=== PATIENT | male | born 1995 | race Caucasian/White ===

== ENCOUNTER 2018-07-22 05:47 | Day surgery (SDC) | payer OTHER ==
[2018-07-22] MEDS ORDERED: LACTATED RINGERS 1,000 ML IV ONE ×2 (06:19→09:32)
[2018-07-22] MEDS ORDERED: ceFAZolin 2 GM/50 ML 2 GM/50 ML BAG IV ONE (06:35)
--- NOTE | 2018-07-22 07:11 | ANESTHESIA ---
Pre-Anesthesia VS, & Labs - Diagnosis right wrist dorsal ganglion cyst - Procedure excision of right wrist dorsal ganglion cyst Vital Signs: Temp Pulse Resp BP Pulse Ox 36.4 C L 76 16 145/91 H 100 07/22/18 06:34 07/22/18 06:34 07/22/18 06:34 07/22/18 06:34 07/22/18 06:34 Height 6 ft Weight (kg) 127.01 kg - NPO >8 hours Home Medications and Allergies Home Medications: Ambulatory Orders Cholecalciferol (Vitamin D3) [Vitamin D3] 1,000 unit PO 07/20/18 Cholecalciferol (Vitamin D3) [Vitamin D3] 1,000 unit PO 07/20/18 Allergies/Adverse Reactions: Allergies Allergy/AdvReac Type Severity Reaction Status Date / Time No Known Drug Allergies Allergy Verified 07/20/18 13:52 Anes History & Medical History - Anesthetic History Family history of Anesthesia Complications: Denies Family history of Malignant Hyperthermia: Denies - Medical History Cardiovascular: reports: None Pulmonary: reports: Sleep apnea (reports snoring and previous bed partner reported he "stops breathing at night") Gastrointestinal: reports: None Urinary: reports: None Neuro: reports: None Musculoskeletal: reports: None Endocrine/Autoimmune: reports: None Blood Disorders: reports: None Skin: reports: None Smoking Status: Current some day smoker (Vapes) Psychosocial: reports: No issues indicated Exam General: Alert, Oriented x3, Cooperative, No acute distress Dental: WNL Mouth Openin Fingerbreadth Neck Mobility: Normal Mallampati classification: II Thyromental Distance: 4-6 cm Respiratory: Lungs clear, Normal breath sounds, No respiratory distress, No accessory muscle use Cardiovascular: Regular rate, Normal S1, Normal S2, No murmurs Mental/Cognitive Status: Alert/Oriented X3, Normal for patient Plan Anesthesia Type: General Consent for Procedure(s) Verified and Reviewed: Yes Code Status: Attempt Resuscitation ASA classification: 2-Mild systemic disease Is this case an emergency?: No
[2018-07-22] MEDS ORDERED: BUPIVACAINE 0.25% PF 30 ML VIAL ONE (07:12)
[2018-07-22] MEDS ORDERED: PROPOFOL 200 MG/20 ML VIAL IVP ONE (08:17)
[2018-07-22] MEDS ORDERED: fentaNYL 100 MCG/2 ML VIAL IVP ONE (08:17)
[2018-07-22] MEDS ORDERED: DEXAMETHASONE 4 MG/ML VIAL IVP ONE (08:17)
[2018-07-22] MEDS ORDERED: KETOROLAC 30 MG/ML VIAL IVP ONE (08:17)
[2018-07-22] MEDS ORDERED: ONDANSETRON 4 MG/2 ML VIAL IVP ONE (08:17)
[2018-07-22] MEDS ORDERED: LIDOCAINE-MPF 2% 5 ML VIAL IM ONE (08:17)
[2018-07-22] MEDS ORDERED: MIDAZOLAM 2 MG/2 ML VIAL IVP ONE (08:17)
[2018-07-22] MEDS ORDERED: BUPIVACAINE 0.25% PF 30 ML VIAL SUBQ ONE ×2 (08:19→08:48)
[2018-07-22] MEDS ORDERED: oxyCODONE 5 MG TABLET PO PRN (09:05)
[2018-07-22] MEDS ORDERED: ONDANSETRON 4 MG/2 ML VIAL IVP PRN (09:05)
--- NOTE | 2018-07-22 09:14 | OPERATIVE REPORT ---
Operative Report - General Procedure Date: 07/22/18 Planned Procedure: Right dorsal wrist mass excision Pre-Op Diagnosis: Right dorsal wrist mass Procedure Performed: Right dorsal wrist mass excision Post Op Diagnosis: Right dorsal wrist mass - Procedure Note Primary Surgeon: BACILIO Martin Secondary Surgeon: Jr CARRILLO Anesthesia Technique: General LMA Pathology: Right dorsal wrist mass sent for permanent pathology Estimated Blood Loss (mL): 5 - Other Other Information/Narrative: Tourniquet Time: 37 minutes at 250mmHg. Specimen(s) Information: Right dorsal wrist mass Complication(s): None Condition: Stable to recover Indications for Surgery: The patient is a 23-year-old right hand dominant male with a 24 month history of a right dorsal wrist mass. The mass is localized to the right dorsal wrist and is somewhat mobile and slightly compressible. The mass causes pain with wrist extension and is exaggerated by maximal wrist flexion. Xrays were normal. MRI demonstrated a T2 hyperintense cystic-appearing lesion of the dorsal wrist, with no central enhancement following intravenous gadolinium administration, consistent with a ganglion cyst. The patient was counseled on treatment options to include continued nonoperative treatment in the form of activity modification, possible aspiration of the mass versus surgical excision. The patient elected to proceed with surgical excision. Risks of surgery were discus sed to include bleeding, infection, postoperative wrist stiffness, mass recurrence, damage to nerves, vessels, tendons, ligaments, bone and cartilage and anesthesia complications to include medication side effects and allergic reactions and even . After a long discussion, he wished to proceed. Findings: Dorsal wrist ganglion cyst with clear gelatinous fluid Descriptions of Procedure: The patient was met in the Preoperative Holding Area, at which time preoperative paperwork was confirmed. The right dorsal wrist was signed. The patient was then brought to Main Operating Room, placed supine on the Operating Room table, at which time pre procedure timeout was conducted to confirm correct patient, correct extremity and correct procedure and also to confirm presence and sterility of all required equipment and to confirm that antibiotics were being administered in the form of 2g of intravenous Ancef. After this was confirmed, general anesthesia was induced. The operative extremity was then prepped and draped over a hand table in the normal sterile fashion after a well-padded tourniquet was placed on the proximal arm. A final timeout was conducted to confirm the correct patient, correct extremity and correct procedure and to confirm that antibiotics had been administered within 30 minutes of incision time. The operative extremity was then exsanguinated with an Esmarch bandage and tourniquet inflated to 250mmHg. A 2cm transverse incision was made over the SL interval with a #15 blade through skin and subcutaneous tissue. Dissection was further carried out with tenotomy scissors. The mass was carefully dissected, removing all soft tissue attachments surrounding the mass down to the wrist capsule. The mass was then excised off of the wrist capsule. The mass contained homogeneous gelatinous material consistent with a ganglion cyst. The mass was then passed off the back table in a sterile specimen cup fixed in formalin. The wrist capsule where the cyst was removed from was cauterized with bipolar electrocautery. The wound was then copiously irrigated. The deep dermal layer was closed with a single 3-0 Vicryl in buried interrupted fashion. The skin was then closed with 3-0 monocryl in running subcuticular fashion. Mastisol and Steri-Strips were applied. 10 mL of half percent plain Marcaine were injected around the incision. The wound was dressed with plain 4x4 gauze, followed by webril, and a compressive Deandre bandage. The tourniquet was let down. The patient was then awakened from general anesthesia without complication, brought to the Post Anesthesia Care for further recovery. Postoperative Plan: 1. The patient will be discharged from the Same Day Surgery Unit when discharge criteria are met. 2. The patient will remain in the dressing for for approximately 10 days until follow-up, this will be removed in clinic. He will start gentle range of motion of the wrist on postoperative day 1. 3. Expect return to full duty in 4-6 weeks, and he was counseled that he may have wrist stiffness up to 8 weeks postoperatively. 4. Discharge precautions were provided in both verbal and written form to the patient
[2018-07-22 09:56] VITALS: BP 133/65
== END 2018-07-22 05:48 | disposition home or self-care (01) ==
LOC: SDS 05:47
PROVIDERS: ATTEND Orthopaedic Surgery
PROC: 0LB50ZZ Excision of Right Lower Arm and Wrist Tendon, Open Approach (ICD-10-PCS; principal; 2018-07-22 07:30)
DX: M67.431 Ganglion, right wrist (principal); F17.290 Nicotine dependence, other tobacco product, uncomplicated; G47.30 Sleep apnea, unspecified
CPT/HCPCS: 25111; J0690; J7120

== ENCOUNTER 2020-10-24 13:07 | Outpatient (CLI) | payer OTHER ==
--- NOTE | 2020-10-24 14:01 | SLEEP CARE CONSULTATION ---
Information from patient questionnaire entered by Reyna Griffin. I have reviewed and concur with the information entered by Reyna Griffin. This document represents the service I personally performed and the decisions made by me, Jojo Moreno ARNP. History of Present Illness Service Date and Time: 10/24/2020 1307 Reason for Visit: New patient Chief Complaint: reports: Insomnia, Unrefreshed sleep, Snoring, Observed pauses in breathing, Frequent awakenings at night Date of Onset: 5 years plus Usual bedtime: 9 pm Time it takes to fall asleep: 2-3 hours Snores at night: Yes Observed to quit breathing while asleep: Yes (sometimes) Sleeps alone due to snoring: No Number of times waking at night: 1-2 time intermittent, not every night Reasons for waking at night: reports: Snoring, Gasping for air, Other (noise). denies: Choking Toss, Turn, or Twitch while sleeping: No Recalls having dreams: No Usually gets out of bed at: 5 am Feels refreshed in the morning: No Morning headache: No Sleepy or fatigued during the day: Yes Ever fallen asleep while driving: No (occasional drowsy driving with long drives; no accidents) Takes day naps: No Dreams during day naps: No Prior sleep studies: No Additional HPI information: I had the pleasure of seeing NATY VILLAGRAN today regarding the possibility of him having a sleep disorder. His current complaints are frequent night awaken ings, insomnia, observed pauses in breathing and snoring. He has been told by lots of people that he stops breathing when sleeping, including when he had 2 surgeries. His girlfriend has told him that he snores loudly. He states it takes it can take 2-3 hours to go to sleep. Once he gets to sleep he can stay asleep with occasional wake ups. He has woken himself up snoring and occasionally with gasps for air. He has many people in his family who snore but none diagnosed with sleep apnea. 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 Patient is Single and lives in [place]. Have you smoked in the past 12 months: Yes (situational) Cigarettes per day (20/pack): 10 (- 20) Years of smokin Smoking Pack Years: 1.5 Alcohol use: Yes Alcohol amount and frequency: 3 drinks a month Caffeine use: Yes Caffeine amount and frequency: 1-2 drinks a day Family History Family history of sleep disordered breathing: Yes Family Hx Sleep Apnea: Mother: Snoring (uncles), Grandparent: Snoring, Other: Snoring Allergies and Home Medications Drug allergies reviewed: Yes (NKDA) Home medication list reviewed: Yes Allergy and home medication list: Vitamin pack daily Ibuprofen as needed Review of Systems Weight gain over past 5 years: 30 Cardiovascular: reports: high blood pressure Gastrointestinal: denies: difficulty swallowing Neurological: denies: headaches Psychiatric: reports: anxiety Ear/Nose/Throat: reports: wisdom teeth removed. denies: injury to nose, tonsillectomy Musculoskeletal: reports: joint pain Physical Exam Blood Pressure: 112/73 Cuff size: wrist Heart Rate: 90 O2 Saturation: 96 Height: 6 ft Weight: 306 lb Body Mass Index: 41.5 BMI Classification: Morbidly Obese Neck circumference: 19 (inches) Mouth and throat: narrow oropharynx Soft palate: long Hard palate: normal Uvula: long (thin) Uvula visualization: 50% Mallampati Class II Tongue: enlarged in size with teeth ray on lateral edges Tonsils: small Neck: normal w/o lymphadenopathy or thyromegaly Heart: regular rate and rhythm Lungs: clear bilaterally Impression and Plan 1. Suspected Obstructive Sleep Apnea-Hypopnea Syndrome, as suggested by a history of loud and irregular snoring, observed cessation of breath while asleep, gasping or choking in sleep, and unrefreshed sleep. Narrow oropharynx and obesity are common predisposing factors for obstructive sleep apnea-hypopnea syndrome. I recommend proceeding to polysomnography to confirm the diagnosis and to assess severity. If the patient has significant sleep disordered breathing, a manual CPAP titration study will also be performed to find the optimal treatment pressure. I informed the patient of what the sleep studies involve and after some discussion, obtained agreement to proceed. The pathophysiology of obstructive sleep apnea-hypopnea syndrome was discussed with the patient and health risks of cardiovascular and cerebrovascular disease if not treated. AASM brochure for obstructive sleep apnea-hypopnea syndrome given and reviewed. Risks of drowsy driving discussed in detail and patient advised to avoid long distance driving and to warehouse puller at the first sign of drowsiness. Patient agreed to plan. * Schedule polysomnography +- manual CPAP titration study and return in 1-2 weeks after the study to discuss result and initiate therapy. * Avoid long distance driving or driving when feeling sleepy. * Avoid alcohol, sedative and muscle relaxant around bedtime. * Attempt to lose weight. * Review instructions provided by trained office staff on how to prepare for the sleep study. * Return for follow-up after sleep study completed. Counseling Topics: Weight loss health impact Visit Type: In Office Time Spent with Patient (minutes): 30 Provider Statement: I spent 100% of the Face to Face Visit with the patient with greater than 50% spent counseling the patient and coordination of care.
[2020-10-24 14:02] VITALS: BP 112/73
== END 2020-10-24 13:08 | disposition home or self-care (01) ==
LOC: SC 13:07
PROVIDERS: ATTEND Nurse Practitioner Family
DX: R06.83 Snoring (principal); R06.81 Apnea, not elsewhere classified; G47.8 Other sleep disorders; E66.01 Morbid (severe) obesity due to excess calories; Z68.41 Body mass index [BMI] 40.0-44.9, adult
CPT/HCPCS: 99203; 99212

== ENCOUNTER 2020-10-29 12:18 | Outpatient (CLI) | payer OTHER | END 2020-10-29 12:19 | disposition home or self-care (01) | LOC: SC 12:18 | PROVIDERS: ATTEND Nurse Practitioner Family | DX: G47.33 Obstructive sleep apnea (adult) (pediatric) (principal); R09.02 Hypoxemia | CPT/HCPCS: 95806 ==

== ENCOUNTER 2020-11-07 07:54 | Outpatient (CLI) | payer OTHER ==
--- NOTE | 2020-11-07 08:33 | SLEEP CARE CONSULTATION ---
Information from patient questionnaire entered by Reyna Griffin. I have reviewed and concur with the information entered by Reyna Griffin. This document represents the service I personally performed and the decisions made by , Jojo Moreno ARNP. History of Present Illness Service Date and Time: 11/07/2020 0754 Initial [place] Sleepiness Scale score: 6 (in 2020) Current [place] Sleepiness Scale score: 5 Additional HPI information: NATY VILLAGRAN returns for follow up and results of the recently performed home sleep study. I explained the pathophysiology behind obstructive sleep apnea. We then spent quite a bit of time discussing different treatment options. For mild obstructive sleep apnea, surgery and oral appliance are alternatives to nasal CPAP therapy but in moderate or severe cases, nasal CPAP is the most effective and reliable treatment. Because apnea is primarily in supine position, then positional management therapy could be effective. Methods discussed such as positioning with pillows, using a T-shirt with tennis balls in the back, and shown commercial products that have a pillow format on back to prevent supine sleep. I reviewed the impact of weight changes on sleep apnea and strongly recommended losing weight. After some discussion, the patient opted to go with the nasal CPAP therapy. Nasal autoCPAP set at 4-15 cmH20 will be ordered with rationale explained. A manual titration study will be ordered if unable to find optimal pressure with office adjustments. I explained how CPAP machine works and what to expect when using the machine. Using CPAP every night in order to get used to it was emphasized. Patient advised to put CPAP mask on before getting into bed so as not to fall asleep without CPAP. To assist acclimation to CPAP use, it could also be used for a short time during day while reading or watching TV. The patient was instructed to call the CPAP supplier to discuss any mechanical problem that may occur. If the mask given is uncomfortable or is difficult to keep on through the night even with adjustment, contact the CPAP supplier as many will replace with another mask style if notified before 30 days. If snoring or perceives is not getting enough air or too much air from the machine, notify this office. AASM patient education PAP tips reviewed and given to patient. Patient counseled not drink alcohol less than 4 hours before bedtime as it can increase snoring and apnea. Patient was cautioned about risks of drowsy driving until sleepiness symptoms resolve. Sleep Study - Results Type of Sleep Study: Home sleep study Prior sleep studies: No Polysomnography/Home Sleep Study results: Physician Impression: The quality of the study is fair due to partial loss of pulse oximetry signal. The length of the study is adequate (> 240 minutes). Please also see the tabulated and graphic data. 1. Obstructive Sleep Apnea-Hypopnea (ICD-10 G47.33), moderate, with an AHI of 28.9/hr and kash SaO2 of 83%. During the study, the patient had 20 apneas (20 obstructive, 0 central, 0 mixed) and 139 hypopneas. The longest episode lasted 124.0 seconds. The respiratory events occurred more frequently during non-supine sleep (supine AHI was 28.8 and non-supine, 66.67). 2. Hypoxemia (ICD-10 R09.02), mild, with the lowest oxygen saturation of 83 % and 25.9 minutes with SaO2 under 90%. Baseline oxygen saturation was normal (Average oxygen saturation was 94%). Allergies and Home Medications Home medication list reviewed: Yes (no changes) Review of Systems Review of systems same as previous: Yes (no changes) Physical Exam Heart Rate: 72 O2 Saturation: 98 Height: 6 ft Weight: 313 lb (w/boots and fatigues on) Body Mass Index: 42.4 BMI Classification: Morbidly Obese Impression and Plan 1. Obstructive Sleep Apnea-Hypopnea Syndrome, moderate, with lowest oxygen saturation of 83%. Obviously this is the cause of the patients symptoms of unrefreshed sleep, and excessive daytime sleepiness. Positive pressure therapy could benefit his overall health and reduce cardiovascular and cerebrovascular adverse events. As mentioned above, the patient will be started on nasal autoCPAP therapy with pressure set at 4-15 cmH2O. A manual titration study will be completed if unable to find optimal treatment pressure with office adjustments. Compliance guidelines also reviewed. A copy of compliance guidelines will be given for reference at check out. Because the apnea is more severe supine, I instructed to avoid sleeping supine using pillow positioning until able to start CPAP use. 2. Hypoxemia, mild, with the lowest oxygen saturation of 83 % and 25.9 minutes with SaO2 under 90%. His baseline oxygen saturation was normal with an average oxygen saturation of 94%. * Nasal auto CPAP therapy, pressure at 4-15 cm H2O. * Attempt to lose weight. * Avoid alcohol consumption near bedtime. * Avoid supine sleep until using CPAP. * The patient is again cautioned about driving until sleepiness completely resolves. * Return one month after CPAP obtained. I will assess response to therapy and compliance at that time. Counseling Topics: Weight loss health impact Visit Type: In Office Time Spent with Patient (minutes): 20 Provider Statement: I spent 100% of the Face to Face Visit with the patient with greater than 50% spent counseling the patient and coordination of care.
== END 2020-11-07 07:55 | disposition home or self-care (01) ==
LOC: SC 07:54
PROVIDERS: ATTEND Nurse Practitioner Family
DX: G47.33 Obstructive sleep apnea (adult) (pediatric) (principal); R09.02 Hypoxemia; E66.01 Morbid (severe) obesity due to excess calories; Z68.41 Body mass index [BMI] 40.0-44.9, adult
CPT/HCPCS: 99212; 99213

== ENCOUNTER 2020-12-28 07:30 | Emergency (ER) | payer OTHER ==
[2020-12-28 07:43] VITALS: BP 144/78
--- NOTE | 2020-12-28 08:03 | ED Physician Documentation ---
PD HPI SKIN - Stated complaint Stated Complaint: BUMPS OVER BODY - Chief complaint Chief Complaint: Wound - History obtained from History obtained from: Patient - History of Present Illness Timing - onset: Yesterday (7pm) Timing - details: Abrupt onset Location: Bodywide (come and go, now mostly right forearm) Quality / character: Painful, Swelling (L hand, and L great toe) Similar symptoms before: Diagnosis (hives a few years ago, resolved with prednisone) Review of Systems Constitutional: denies: Fever, Chills, Myalgias Throat: reports: Reviewed and negative Cardiac: reports: Reviewed and negative Respiratory: reports: Reviewed and negative PD PAST MEDICAL HISTORY - Past Medical History Cardiovascular: None Respiratory: Sleep apnea Neuro: None Endocrine/Autoimmune: None GI: None : None HEENT: None Psych: None Musculoskeletal: None Derm: None - Present Medications Home Medications: Ambulatory Orders Medication Instructions Recorded Confirmed Cholecalciferol (Vitamin D3) 1,000 unit PO 07/20/18 [Vitamin D3] Doxepin [SINEquan] 10 mg PO TID PRN #14 cap 12/28/20 predniSONE [Deltasone] 60 mg PO DAILY 5 Days #15 tablet 12/28/20 - Allergies Allergies/Adverse Reactions: Allergies Allergy/AdvReac Type Severity Reaction Status Date / Time No Known Drug Allergies Allergy Verified 12/28/20 07:43 - Social History Does the pt smoke?: No Smoking Status: Never smoker PD ED PE NORMAL - Vitals Vital signs reviewed: Yes - General General: Alert and oriented X 3, No acute distress - HEENT HEENT: Pharynx benign - Neck Neck: Supple, no meningeal sign, No bony TTP - Derm Derm: Other (Hives alan R forearm, red/edema to L great toe and L hand.) - Neuro Neuro: Alert and oriented X 3, Normal speech Results - Vitals Vitals: Vital Signs - 24 hr 12/28/20 07:32 Temperature 36.7 C Heart Rate 94 Respiratory 16 Rate Blood Pressure 144/78 H O2 Saturation 96 Oxygen O2 Source Room air PD MEDICAL DECISION MAKING - ED course ED course: 25-year-old gentleman presents with what looks like a diffuse hive situation with unknown trigger. He is treated with doxepin and steroids. Departure - Departure Disposition: 01 Home, Self Care Clinical Impression: Allergic reaction Qualifiers: Encounter type: initial encounter Qualified Code(s): T78.40XA - Allergy, unspecified, initial encounter Condition: Good Record reviewed to determine appropriate education?: Yes Instructions: ED Allergic Reaction General Other Prescriptions: predniSONE [Deltasone] 60 mg PO DAILY 5 Days #15 tablet Doxepin [SINEquan] 10 mg PO TID PRN #14 cap PRN Reason: Itching Comments: Call your doctor to arrange a follow-up appointment, make the next available appointment. In the interim, return anytime if worse or if new symptoms develop.
== END 2020-12-28 08:22 | disposition home or self-care (01) ==
LOC: ED 07:30
DX: T78.40XA Allergy, unspecified, initial encounter (principal); L50.0 Allergic urticaria; X58.XXXA Exposure to other specified factors, initial encounter
CPT/HCPCS: 99282; 99283